=== PATIENT | female | born 1945 | race Caucasian/White ===

== ENCOUNTER → 2018-05-03 | Outpatient (CLI) | payer OTHER | END | disposition home or self-care (01) | LOC: M.RAD 04-08 10:00 | DX: M25.552 Pain in left hip (principal); G89.29 Other chronic pain ==

== ENCOUNTER → 2018-10-27 | Outpatient (CLI) | payer OTHER | END | disposition home or self-care (01) | LOC: M.RAD 12:53 | DX: M25.852 Other specified joint disorders, left hip (principal) ==